=== PATIENT | female | born 1980 ===

== ENCOUNTER 2023-07-12 12:19 | Emergency (ER) | payer BC, SELFPAY ==
[2023-07-12 12:20] VITALS: BMI 28.3
[2023-07-12 12:31] VITALS: BP 126/84
[2023-07-12 13:34] VITALS: BP 129/106
[2023-07-12 14:01] VITALS: BP 72/57
[2023-07-12 14:26] VITALS: BP 105/80
--- NOTE | 2023-07-12 14:37 | ED.GENMED ---
History of Present Illness
General
Chief Complaint: Numbness
Source: patient
Exam Limitations: none
Time Seen by Provider: 07/12/23 13:46
Nursing documentation reviewed up to this point in time: agreed with
Travel History
Have you had any contact with someone who has COVID-19?: No
Do you have any symptoms of coronavirus? Fever > 100 degrees, chills, cough, shortness of breath, sore throat, loss of taste or smell, muscle aches, or headache?: No
History of Present Illness
History of Present Illness:
42 Y/O F with h/o anemia previously
here with b/l 2nd 3rd 4th finger numbness and pain x 3 ngihts with worsening pain today
pt says it feels like a deep numbness pain that is keeping her from sleeping.it got worse last night and pt says she was awake and had trouble sleeping, was trying to pace around which seems to helkp but then felt lightheaded
she also started her menses as per usual a few days ago and it got heavy last night so she was attributing the lightheadedness to her heavier period. pt never had syncope but says she lays down when she feel s lightheaded which she had to do
she took tylenol which eventually helped for a little while but then the sensation came back
she has not had any headache, neck pain, cp, sob, abdomianl pain, n/v/d, leg waekness or numbness
she has no chronic neck conditions
had very similar sypmtoms when she had carpal tunnel during
but she is not so she is unclear why this is happening
she also notcied that her fingers were swollen today when she got up
they have gone down in size
she never had any discoloration or raynauds
Past History
Past History
ED Past Medical History: Other (anemia)
ED Past Surgical History: None
Social History
Tobacco: Non-smoker
Alcohol: None
Drug: None
Personal:
Review of Systems
Review of Systems
Allergies reviewed?: Yes
All Other Systems: Not applicable
Phy Exam
Physical Exam
Physical Exam:
GENERAL: Alert , in no apparent distress
EYE: pupils equal and reactive
NECK: Supple, nontender, full painless rom
ENT: o/p clr, mmm.
CARDIAC: Regular rate and rhythm .
LUNGS: Clear breath sounds bilaterally, no acute respiratory distress, no wheezes/rales/rhonchi
ABDOMEN: Soft, without focal tenderness, no r/g, no cvat, normal bowel sounds
NEUROLOGICAL: Alert and oriented, no focal neuro deficits, cn intact
sensation intact in hands/legs
strength intact
no weakness
1+ symmetric brachial and patellar refelxes
SKIN: Warm and dry, skin intact.
MUSCULOSKELETAL: No edema, well perfused. neg collin's sign
no swelling or discoloration to fingers noticeable.
PSYCH: Normal and appropriate interaction.
Course
Orders/Labs/Results
Orders:
Orders
07/12/23 14:34
Ketorolac [Toradol] 15 mg IV NOW STA
07/12/23 14:35
Test Result ONCE
07/12/23 14:53
Complete Blood Count/With Diff Urgent
Comprehensive Metabolic Panel Urgent
HCG, Serum Qualitative Screen Urgent
Magnesium Urgent
TSH Reflex To Free T4 Urgent
Abnormal Lab Results
07/12/23
14:53
RBC 4.12 L 10^6/uL
(4.20-5.40)
Hgb 11.7 L g/dL
(12.0-16.0)
Hct 35.5 L %
(37.0-47.0)
MPV 10.5 H fL
(7.4-10.4)
Absolute Lymphs (auto) 0.8 L 10^3/uL
(1.2-3.4)
Neutrophils % 77.5 H %
(42.2-75.2)
Lymphocytes % 15.3 L %
(20.5-51.1)
07/12/23 14:53
07/12/23 14:53
Vital Signs
Initial and Last Documented VS:
Initial Vital Signs
Temp Pulse Resp BP Pulse Ox
98.8 F 73 17 126/84 99
07/12/23 12:31 07/12/23 12:31 07/12/23 12:31 07/12/23 12:31 07/12/23 12:31
Last Documented Vital Signs
Temp Pulse Resp BP Pulse Ox
98.8 F 74 10 107/65 99
07/12/23 12:31 07/12/23 16:50 07/12/23 16:50 07/12/23 16:50 07/12/23 16:50
MDM/Problems Addressed
Differential Diagnosis Includes:
paresthesias, carpal tunnel , radiculopathy, myelopathy, neuropathy
MDM/Problems Addressed:
42 y/o F with intermittent feeling of painful numbness in both hands 2nd, 3rd, 4th fingers only
does not extend proximally at all
no weakness
no neck pain or headache
no cp, sob
no leg symptoms
also got her period and had some heavier bleeding and felt lightheaded, h/o anemia so she wanted to get checked out
no history of autoimmune disease
deluca ricky arechigacharli sypmtoms when when she had carpal tunnel during
on exam pt has no swelling, no color change, full neck rom without pain
nv itnact
reflexes
no raynauds
neg tinnels and phalens signs
reflexes reassuring;
screening labs unremarkable
d/c home
nsaids x 3-5 days
f/u pcp for furhter w/u
*Critical Care Note
Total Time (30-74mins, 75-104mins- exclusive of procedures): Not Applicable
ED Attending Note
-
Portions of this chart may have been created with voice recognition software.� Occasional wrong word or��sound alike� substitutions may have occurred due to the inherent limitations of voice recognition software.
Discharge Plan
Departure
Patient Disposition: Home (Routine Discharge)
Date of Disposition: 07/12/23
Time of Disposition: 16:17
Patient with high blood pressure during this ER visit?: No
Condition: Fair
Covid-19: Not Applicable
Discharge Problem:
Paresthesia
Instructions: Paresthesia (DC)
Referrals:
Shaista Dee DO [Family Provider] - Follow up in 2-3 days
Activity Restrictions/Additional Instructions:
We are not sure the cause of your painful numbness in your hands. Your screening labs were normal today. You had no neck discomfort. There is no weakness or sensory deficits. Potentially this could be carpal tunnel syndrome however I am not
convinced. You may need more of a workup if you continue to have the symptoms. You can try ibuprofen 400 mg 3 times a day with food for the next 3 to 5 days in case there is inflammation causing some pinched nerve.
If you develop weakness in your arms or legs, progressive sensory loss up your arms or legs, neck pain, fever, worsening pain in your hands or color change you really need to come back to the emergency department. Otherwise please follow-up with
your family doctor this week
Interventions
Interventions:
*Risk Screen - Suicide Last Done: 07/12/23 12:33
*General Assessment Last Done: 07/12/23 12:33
*Neglect/Abuse Screening Last Done: 07/12/23 12:33
ED- Fall Risk Assessment Last Done: 07/12/23 13:36
*ED COVID-19 Vaccine History Last Done: 07/12/23 12:33
*Nursing Disposition Last Done: 07/12/23 16:56
ED- Neurological Assessment Last Done: 07/12/23 13:36
Discharge Date and Time
Discharge Date/Time: 07/12/23 16:56
[2023-07-12 15:03] LABS: % Basophils 0.4 % (0-2); % Eosinophils 1.4 % (0-6); % Immature Granulocytes 0.4 % (0-0.5); % Lymphocytes 15.3 % (20.5-51.1); % Neutrophils 77.5 % (42.2-75.2); Absolute Eosinophils 0.1 10^3/uL (0-0.7); Absolute Lymphocytes 0.8 10^3/uL (1.2-3.4); Absolute Monocytes 0.3 10^3/uL (0.1-0.6); Absolute Neutrophils 3.9 10^3/uL (1.4-6.5); Hematocrit 35.5 % (37.0-47.0); Hemoglobin 11.7 g/dL (12.0-16.0); Mean Corpuscular Hgb 28.4 pg (27.0-31.0); Mean Corpuscular Volume 86.2 fL (81.0-99.0); Mean Platelet Volume 10.5 fL (7.4-10.4); Nucleated Red Blood Cells % 0 %; Platelet Count 246 10^3/uL (130-400); Red Blood Cell Count 4.12 10^6/uL (4.20-5.40); Red Cell Dist. Width 12.7 % (11.5-14.5)
[2023-07-12 15:12] LABS: HCG, Serum Qualitative Screen Negative
[2023-07-12 15:17] LABS: ALT (SGPT) 19 U/L (0-35); AST (SGOT) 25 U/L (14-36); Albumin 4.3 g/dl (3.5-5.0); Alkaline Phosphatase 54 U/L (38-126); Blood Urea Nitrogen 12 mg/dl (7-17); Calcium 9.4 mg/dl (8.4-10.2); Carbon Dioxide 26 mmol/L (22-30); Chloride 102 mmol/L (98-107); Estimated Creatinine Clearance 110 ml/min; Glucose 91 mg/dl (70-99); Magnesium 1.8 mg/dl (1.6-2.3); Sodium 138 mmol/L (135-145); Total Bilirubin 1.1 mg/dl (0.2-1.3); Total Protein 7.1 g/dl (6.3-8.2); eGFR > 60.00
[2023-07-12 15:48] LABS: TSH Reflex To Free T4 1.19 uIU/ml (0.47-4.68)
[2023-07-12 16:49] VITALS: BP 107/65
[2023-07-12 16:50] VITALS: BP 107/65
== END 2023-07-12 16:56 | disposition home or self-care (01) ==
LOC: EMR 12:19
PROVIDERS: Physician Assistant; EMERGENCY PHYSICIAN Emergency Medicine; FAMILY PHYSICIAN Family Medicine
DX: R20.2 Paresthesia of skin (principal); R20.0 Anesthesia of skin; R42 Dizziness and giddiness
CPT/HCPCS: 99283; 80053; 83735; 84443; 84703; 85025

== ENCOUNTER → 2023-10-28 19:09 | Outpatient (REF) | payer BC, SELFPAY | LOC: WDC 19:09 | PROVIDERS: ATTENDING PHYSICIAN Obstetrics & Gynecology; FAMILY PHYSICIAN Family Medicine | DX: Z12.31 Encounter for screening mammogram for malignant neoplasm of breast (principal) | CPT/HCPCS: 77063; 77067 ==

== ENCOUNTER → 2024-02-18 15:55 | Outpatient (REF) | payer BC, SELFPAY | LOC: RAD 15:55 | PROVIDERS: ATTENDING PHYSICIAN Family Medicine | DX: M25.561 Pain in right knee (principal) | CPT/HCPCS: 73564 ==

== ENCOUNTER → 2024-03-22 10:00 | Outpatient (REF) | payer BC, SELFPAY | LOC: WDC 10:00 | PROVIDERS: ATTENDING PHYSICIAN Obstetrics & Gynecology; FAMILY PHYSICIAN Family Medicine | DX: R92.333 Mammographic heterogeneous density, bilateral breasts (principal) | CPT/HCPCS: 76641 ==